=== PATIENT | female | born 1975 | race Caucasian/White ===

== ENCOUNTER 2020-08-24 09:39 | Inpatient (IN) | payer BC ==
[~2020-08-24] VITALS: Ht 165.1 cm; Wt 173.4 kg
[2020-08-24] MEDS ORDERED: LORAZEPAM 2MG/ML CPJ IV ONE (10:00)
[2020-08-24] MEDS ORDERED: SODIUM CHLORIDE 0.9% 1,000 ML IV ONE (10:15)
[2020-08-24 10:29] LABS: BASOPHILS % 0.6 % (0.0-2.0); EOSINOPHILS % 1.1 % (0.0-5.0); HEMATOCRIT. 41.2 % (36.0-48.0); HEMOGLOBIN. 13.4 g/dL (12.0-16.0); LYMPHOCYTES % 14.9 % (20.0-50.0); MEAN CORPUSCULAR HEMOGLOBIN 26.5 pg (28.0-32.0); MEAN CORPUSCULAR VOLUME 81.3 fL (81.0-99.0); MEAN PLATELET VOLUME 8.1 fl (7.4-10.4); MONOCYTES % 3.6 % (2.0-8.0); NEUTROPHILS % 79.8 % (40.0-76.0); PLATELET 225 x1000/uL (130-400); RED BLOOD CELL COUNT 5.06 mill/uL (4.2-5.4)
[2020-08-24] MEDS ORDERED: METHYLPREDNISOLONE SOD SUCC 125 MG/2 ML VIAL IV ONE (10:30)
[2020-08-24] MEDS ORDERED: MAGNESIUM 2 G PREMIX 50 ML IV STA (10:35)
[2020-08-24] MEDS ORDERED: IPRATROPIUM BROMIDE (0.02%) 0.5MG/2.5ML NEB HHN STA (10:35)
[2020-08-24 10:39] LABS: CHLORIDE 106 mEq/L (98-107)
[2020-08-24 10:46] LABS: ETHANOL BLOOD < 10 mg/dL
[2020-08-24 10:55] LABS: HCG SCREEN NEGATIVE
[2020-08-24 11:36] LABS: BG BASE EXCESS -0.5 mmol/L (-2.0-2.0); BG CARBOXYHEMOGLOBIN 0.1 % (0.5-1.5); BG DEOXYHEMOGLOBIN 11.3 % (0.0-5.0); BG FRACTION INSPIRED OXYGEN 21; BG HCO3 ACT 23.1 mmol/L (22.0-26.0); BG METHEMOGLOBIN 0.2 % (0.0-1.5); BG OXYGEN SATURATION 88.7 % (92.0-98.5); BG OXYHEMOGLOBIN 88.4 % (94.0-97.0); BG PCO2 34.6 mmHg (35.0-45.0); BG PH 7.443 (7.350-7.450); BG PO2 52.9 mmHg (75.0-100.0); BG SAMPLE SITE LEFT RADIAL; BG TOTAL HEMOGLOBIN 12.7 g/dL (12.0-18.0); BG VENT MODE ROOM AIR
[2020-08-24] MEDS: FUROSEMIDE 40MG/4ML VIAL IVP ONE ×2 (11:39→11:45)
[2020-08-24] MEDS ORDERED: ENOXAPARIN 120MG/0.8ML SYR SUBCUT ONE (11:45)
[2020-08-24 12:13] LABS: D-DIMER 6.15 mg/L FEU (<0.50); PARTIAL THROMBOPLASTIN TIME 21.1 sec (23.4-31.0)
[2020-08-24] MEDS ORDERED: IOHEXOL-350 100 ML BOTTLE ONE (12:54)
[2020-08-24] MEDS ORDERED: GUAIFENESIN 200MG/10ML SUGAR FREE UDC PO PRN (14:30)
[2020-08-24] MEDS ORDERED: DIPHENHYDRAMINE 50MG/ML VIAL IV PRN (14:30)
[2020-08-24] MEDS ORDERED: CEFTRIAXONE 1 G PREMIX 50 ML IV SCH (14:30)
[2020-08-24] MEDS ORDERED: CLONIDINE 0.1MG TABLET PO PRN (14:30)
[2020-08-24] MEDS ORDERED: MORPHINE SULFATE 2 MG/ML CPJ (NOT FOR IM USE) IV PRN (14:30)
[2020-08-24] MEDS ORDERED: MAGNESIUM/ALUMINUM HYDROXIDE/SIMETHICONE 30ML UDC PO PRN (14:30)
[2020-08-24] MEDS ORDERED: IPRATROPIUM/ALBUTEROL 0.5-3(2.5)MG/3ML NEB NEB PRN (14:30)
[2020-08-24] MEDS ORDERED: ACETAMINOPHEN 650MG SUPP PR PRN (14:30)
[2020-08-24] MEDS ORDERED: ONDANSETRON HCL 4MG/2ML INJ IV PRN (14:30)
[2020-08-24] MEDS ORDERED: DOCUSATE SODIUM 100MG CAPSULE PO PRN (14:30)
[2020-08-24] MEDS ORDERED: NA PHOS,M-B/NA PHOS,DI-BA ENEMA 118ML PR PRN (14:30)
[2020-08-24] MEDS ORDERED: ACETAMINOPHEN 325MG TABLET PO PRN (14:30)
[2020-08-24] MEDS ORDERED: HYDROCODONE/ACETAMINOPHEN 5/325MG TABLET PO PRN (14:30)
[2020-08-24] MEDS ORDERED: LORAZEPAM 0.5MG TABLET PO PRN (14:30)
[2020-08-24 16:49] LABS: *AMPHETAMINES SCREEN URINE NEGATIVE (NEGATIVE); *BARBITURATES SCREEN URINE NEGATIVE (NEGATIVE); *BENZODIAZEPINES SCREEN URINE NEGATIVE (NEGATIVE); *COCAINE SCREEN URINE NEGATIVE (NEGATIVE); METHADONE URINE SCREEN NEGATIVE (NEGATIVE); OPIATES URINE SCREEN NEGATIVE (NEGATIVE)
[2020-08-24 16:50] LABS: CANNABINOID URINE SCREEN NEGATIVE (NEGATIVE); PHENCYCLIDINE URINE SCREEN NEGATIVE (NEGATIVE)
[2020-08-24 18:02] VITALS: BP 126/90
[2020-08-24 18:32] VITALS: BP 126/90
[2020-08-24] MEDS ORDERED: ASPI-1153 PO (18:39)
[2020-08-24] MEDS ORDERED: ALBU6.7H9 INH (18:40)
[2020-08-24 20:00] VITALS: BP 134/91
[2020-08-24] MEDS: FAMOTIDINE 20MG TABLET PO SCH (20:59)
[2020-08-24 22:00] VITALS: BP 128/85
[2020-08-25] VITALS (13 sets, daily range): BP systolic 107–152; BP diastolic 68–103
[2020-08-25 01:52] LABS: CREATINE KINASE MB FRACTION 2.8 ng/mL (0.5-3.6)
[2020-08-25 08:00] LABS: BASOPHILS % 0.1 % (0.0-2.0); HEMATOCRIT. 37.8 % (36.0-48.0); HEMOGLOBIN. 12.2 g/dL (12.0-16.0); LYMPHOCYTES % 9.3 % (20.0-50.0); MEAN CORPUSCULAR HEMOGLOBIN 26.1 pg (28.0-32.0); MEAN CORPUSCULAR VOLUME 80.8 fL (81.0-99.0); MEAN PLATELET VOLUME 8.6 fl (7.4-10.4); MONOCYTES % 4.5 % (2.0-8.0); NEUTROPHILS % 86.1 % (40.0-76.0); PLATELET 216 x1000/uL (130-400); RED BLOOD CELL COUNT 4.68 mill/uL (4.2-5.4); RED CELL DISTRIBUTION WIDTH 17.3 % (11.6-14.6)
[2020-08-25 08:12] LABS: CHLORIDE 110 mEq/L (98-107)
[2020-08-25 08:21] LABS: LDL CHOLESTEROL 154 mg/dL (5-100)
[2020-08-25 08:22] LABS: CREATINE KINASE 88 IU/L (26-192); CREATINE KINASE MB FRACTION 2.7 ng/mL (0.5-3.6)
[2020-08-25 08:23] LABS: HDL CHOLESTEROL 31 mg/dL (40-59); T4 FREE 1.05 ng/dL (0.76-1.46)
[2020-08-25] MEDS: ENOXAPARIN 100MG/ML SYR SUBCUT SCH ×2 (09:10)
[2020-08-25] MEDS: ASPIRIN 81MG EC TABLET PO SCH (09:10)
[2020-08-25 13:17] LABS: BG CARBOXYHEMOGLOBIN 0.2 % (0.5-1.5); BG DEOXYHEMOGLOBIN 8.5 % (0.0-5.0); BG FRACTION INSPIRED OXYGEN 21; BG METHEMOGLOBIN 0.2 % (0.0-1.5); BG OXYGEN SATURATION 91.5 % (92.0-98.5); BG OXYHEMOGLOBIN 91.1 % (94.0-97.0); BG PCO2 30.1 mmHg (35.0-45.0); BG PH 7.441 (7.350-7.450); BG PO2 61.5 mmHg (75.0-100.0); BG SAMPLE SITE RIGHT RADIAL; BG VENT MODE ROOM AIR
[2020-08-25] MEDS: CEFTRIAXONE 1,000 MG in DEXTROSE 5% WATER 50 ML IV SCH (15:24)
[2020-08-25] MEDS: IPRATROPIUM/ALBUTEROL 0.5-3(2.5)MG/3ML NEB HHN SCH (20:49)
[2020-08-25] MEDS: ATORVASTATIN CALCIUM 10MG TABLET PO SCH (21:20)
[2020-08-25] MEDS: GUAIFENESIN 600MG ER TABLET PO SCH (21:20)
[2020-08-25] MEDS: FAMOTIDINE 20MG TABLET PO SCH (21:20)
[2020-08-25] MEDS: ENOXAPARIN 150MG/ML SYR SUBCUT SCH (22:27)
[2020-08-26] VITALS (12 sets, daily range): BP systolic 105–158; BP diastolic 63–94
[2020-08-26] MEDS: IPRATROPIUM/ALBUTEROL 0.5-3(2.5)MG/3ML NEB HHN SCH ×5 (02:34→20:53)
[2020-08-26 06:54] LABS: CHLORIDE 109 mEq/L (98-107)
[2020-08-26 07:21] LABS: BASOPHILS % 0.3 % (0.0-2.0); EOSINOPHILS % 0.9 % (0.0-5.0); HEMATOCRIT. 35.2 % (36.0-48.0); HEMOGLOBIN. 11.4 g/dL (12.0-16.0); LYMPHOCYTES % 23.7 % (20.0-50.0); MEAN CORPUSCULAR HEMOGLOBIN 26.5 pg (28.0-32.0); MEAN CORPUSCULAR VOLUME 81.6 fL (81.0-99.0); MEAN PLATELET VOLUME 8.5 fl (7.4-10.4); MONOCYTES % 5.5 % (2.0-8.0); NEUTROPHILS % 69.6 % (40.0-76.0); PLATELET 208 x1000/uL (130-400); RED BLOOD CELL COUNT 4.31 mill/uL (4.2-5.4); RED CELL DISTRIBUTION WIDTH 17.4 % (11.6-14.6)
[2020-08-26] MEDS: GUAIFENESIN 600MG ER TABLET PO SCH ×2 (08:41→20:58)
[2020-08-26] MEDS: ASPIRIN 81MG EC TABLET PO SCH (08:41)
[2020-08-26] MEDS: ENOXAPARIN 150MG/ML SYR SUBCUT SCH ×2 (08:41→20:58)
[2020-08-26] MEDS ORDERED: METOPROLOL TARTRATE 25MG TABLET PO NR (12:45)
[2020-08-26] MEDS: CEFTRIAXONE 1,000 MG in DEXTROSE 5% WATER 50 ML IV SCH (15:24)
[2020-08-26 19:51] LABS: CLARITY URINE CLEAR (CLEAR); COLOR URINE YELLOW (YELLOW); KETONES URINE NEGATIVE (NEGATIVE); LEUKOCYTE ESTERASE URINE NEGATIVE (NEGATIVE); NITRITE URINE NEGATIVE (NEGATIVE); OCCULT BLOOD URINE 1+ (NEGATIVE); PROTEIN URINE NEGATIVE (NEGATIVE); SPECIFIC GRAVITY URINE 1.031 (1.005-1.030); UROBILINOGEN URINE 0.2 E.U./dL (0.2-1.0)
[2020-08-26] MEDS: ATORVASTATIN CALCIUM 10MG TABLET PO SCH (20:55)
[2020-08-26] MEDS: METOPROLOL TARTRATE 25MG TABLET PO SCH (20:55)
[2020-08-26] MEDS: FAMOTIDINE 20MG TABLET PO SCH (20:58)
[2020-08-27] VITALS (12 sets, daily range): BP systolic 94–121; BP diastolic 63–86
[2020-08-27] MEDS: IPRATROPIUM/ALBUTEROL 0.5-3(2.5)MG/3ML NEB HHN SCH ×2 (02:34→07:27)
[2020-08-27 05:26] LABS: BASOPHILS % 0.3 % (0.0-2.0); EOSINOPHILS % 2.3 % (0.0-5.0); HEMATOCRIT. 36.8 % (36.0-48.0); HEMOGLOBIN. 11.7 g/dL (12.0-16.0); LYMPHOCYTES % 21.4 % (20.0-50.0); MEAN CORPUSCULAR HEMOGLOBIN 25.8 pg (28.0-32.0); MEAN CORPUSCULAR VOLUME 81.2 fL (81.0-99.0); MEAN PLATELET VOLUME 8.1 fl (7.4-10.4); MONOCYTES % 4.8 % (2.0-8.0); NEUTROPHILS % 71.2 % (40.0-76.0); PLATELET 201 x1000/uL (130-400); RED BLOOD CELL COUNT 4.53 mill/uL (4.2-5.4)
[2020-08-27 05:41] LABS: CHLORIDE 106 mEq/L (98-107)
[2020-08-27] MEDS: METOPROLOL TARTRATE 25MG TABLET PO SCH ×2 (08:40→20:03)
[2020-08-27] MEDS: GUAIFENESIN 600MG ER TABLET PO SCH ×2 (08:40→20:02)
[2020-08-27] MEDS: ASPIRIN 81MG EC TABLET PO SCH (08:40)
[2020-08-27] MEDS: ENOXAPARIN 150MG/ML SYR SUBCUT SCH (08:41)
[2020-08-27] MEDS: CEFTRIAXONE 1,000 MG in DEXTROSE 5% WATER 50 ML IV SCH (15:06)
[2020-08-27] MEDS ORDERED: RIVAROXABAN 15 MG TABLET PO SCH (17:00)
[2020-08-27] MEDS: FAMOTIDINE 20MG TABLET PO SCH (20:03)
[2020-08-27] MEDS: RIVAROXABAN 15 MG TABLET PO SCH (20:03)
[2020-08-27] MEDS ORDERED: ATORVASTATIN CALCIUM 40MG TABLET PO SCH (21:00)
[2020-08-28] VITALS (9 sets, daily range): BP systolic 90–125; BP diastolic 64–88
[2020-08-28 05:40] LABS: BASOPHILS % 0.5 % (0.0-2.0); HEMOGLOBIN. 12.4 g/dL (12.0-16.0); LYMPHOCYTES % 17.9 % (20.0-50.0); MEAN CORPUSCULAR HEMOGLOBIN 25.9 pg (28.0-32.0); MEAN CORPUSCULAR VOLUME 81.3 fL (81.0-99.0); MEAN PLATELET VOLUME 8.2 fl (7.4-10.4); MONOCYTES % 4.1 % (2.0-8.0); NEUTROPHILS % 74.5 % (40.0-76.0); PLATELET 200 x1000/uL (130-400); RED CELL DISTRIBUTION WIDTH 16.8 % (11.6-14.6)
[2020-08-28 05:49] LABS: CHLORIDE 105 mEq/L (98-107)
[2020-08-28] MEDS: RIVAROXABAN 15 MG TABLET PO SCH (08:19)
[2020-08-28] MEDS: GUAIFENESIN 600MG ER TABLET PO SCH (08:19)
[2020-08-28] MEDS: METOPROLOL TARTRATE 25MG TABLET PO SCH (08:20)
[2020-08-28] MEDS ORDERED: XAR15 MT (14:05)
[2020-08-28] MEDS ORDERED: METO25TA6 MT (14:05)
[2020-08-28] MEDS ORDERED: ALBU90AE INH (14:05)
[2020-08-28] MEDS ORDERED: LIP40 MT (14:05)
[2020-08-28] MEDS: CEFTRIAXONE 1,000 MG in DEXTROSE 5% WATER 50 ML IV SCH (14:10)
[2020-08-30 16:32] LABS: PROTEIN C FUNCTIONAL 131 % (73-180)
[2020-09-18] MEDS ORDERED: RIVAROXABAN 20 MG TABLET PO SCH (17:20)
== END 2020-08-28 15:50 | disposition home health service (06) | DRG 175 ==
LOC: ER 09:39 → 3WST 12:51 → CANRESERV 13:06 → ENRESERV 13:06 → CANRESERV 13:16 → ENRESERV 13:16 → EDBEDREQSVC 13:16 → SUPCPDRO 14:22 → ENRESERV 15:10
PROVIDERS: ADMIT Internal Medicine; ATTEND Internal Medicine
DX: I26.99 Other pulmonary embolism without acute cor pulmonale (principal); J96.01 Acute respiratory failure with hypoxia; D68.59 Other primary thrombophilia; Z68.44 Body mass index [BMI] 60.0-69.9, adult; E66.2 Morbid (severe) obesity with alveolar hypoventilation; J06.9 Acute upper respiratory infection, unspecified; E78.5 Hyperlipidemia, unspecified; I11.0 Hypertensive heart disease with heart failure; I27.20 Pulmonary hypertension, unspecified; I50.9 Heart failure, unspecified; J45.909 Unspecified asthma, uncomplicated; R73.9 Hyperglycemia, unspecified; Z20.822 Contact with and (suspected) exposure to COVID-19
CPT/HCPCS: 36415; 36600; 71045; 71275; 80048; 80053; 80061; 80305; 80320; 81003; 82375; 82530; 82533; 82550; 82553; 82805; 83036; 83880; 84439; 84443; 84484; 84703; 85025; 85303; 85306; 85379; 87426; 93005; 93306; 93970; 94618; 94640; 97162; 99291; A6261; J0696; J1650; J1940; J2060; J2930; J3475; J7030; J7060; Q9967; A4315; G0480